=== PATIENT | female | born 2000 | race Two or more races ===

== ENCOUNTER 2024-05-17 09:38 | Inpatient (IN) | payer MEDICAID, SELFPAY ==
[2024-05-17] VITALS (88 sets, daily range): BP systolic 93–140; BP diastolic 51–103; PULSE 66–113; RESP 18; TEMP 37; O2SAT 92–100; BMI 24.5
--- NOTE | 2024-05-17 10:04 | XR_ITS ---
Examination: Complete OB ultrasound greater than 14 weeks Date and time of exam: May 17, 2024 1030 hrs. Indications: Onset pelvic contractions today Findings: Viable intrauterine single fetus with single amniotic sac presentation cephalic Cardiac motion 144 BPM Placenta anterior grade 3 Clinical cord insertion 3 vessel seen Amniotic fluid index 12.3 cm spine maternal right Ovaries obscured by bowel gas. Composite estimated gestational age based on BPD, head circumference, abdominal circumference, femur length is 37 weeks 5 days Estimated weight 3187 g. Survey of intracranial anatomy, spinal anatomy, abdominal anatomy, four-chamber heart performed with no abnormalities identified. Impression: Viable intrauterine gestation cephalic presentation Estimated gestational age 37 weeks 5 days Estimated weight 3187 g.
[2024-05-17 10:10] LABS: ROM Kit Lot # 57805053; ROM Swab Mixed By: SEGA; Rupture of Fetal Membranes Negative (Negative); Swb Mxed in Solvent 1 min? Yes
--- NOTE | 2024-05-17 13:27 | PD.LDHP ---
Documentation for date of: 05/17/24 OB Labor/Induct. HPI History of Present Illness Chief complaint: 24 y/o 36w 5d presents to L&D in early labor at 3 cm : 2 Para: 0 Term pregnancies: 0 pregnancies: 0 Living children: 0 History of Abortions: Spontaneous and Elective: 1 History of Vaginal deliveries: 0 History of sections: No History of : No WILL: 06/09/24 Gestational Age (weeks): 36 Gestational Age (days): 5 History of present illness: 24 y/o 36w 5d presents to L&D in early labor at 2 cm, pt came in complaining of pain 8/10 tasha 2-3 minutes at 2 cm and quickly changed to 3/80/-2 vertex with a bulging bag. Complete sono fetus is measuring about 37 weeks with EFW 3200g. GBS is neg. has been complicated by severe anemia, pt did have blood transfusion early in . Pt also has depression and is currently on zoloft. Pt has a hx of 1 SAB. NIPT neg Male and AFP is neg. PT received TDAP and RSV vaccine during care. History of Present Dating criteria: based on 1st trimester US only Adequate Care: Yes Ultrasounds: normal 1st trimester US and normal mid trimester US Obstetrical complications: other (Anemia and depression) Labs Maternal Blood Type: A Pos Labs: Positive: Rubella Titre, Negative: RPR, Hepatitis B, HIV, Chlamydia, Gonorrhea and Group Beta Strep and Unknown: Herpes Type 1, Herpes Type 2 and Covid-19 Review of Systems Review of Systems Systems Reviewed: All systems reviewed, normal except as documented Past Medical History Surgical History SURGICAL: Negative Section Meds Home Medications and Allergies Home Medications ?Medication ?Instructions ?Recorded ?Confirmed ?Type [id number] 1 mg 2 tab PO DAILY 05/17/24 05/17/24 History tablet Allergies Allergy/AdvReac Type Severity Reaction Status Date / Time No Known Allergies Allergy Verified 05/17/24 10:27 OB Exam Physical Exam Vital signs: Pulse BP 73 121/76 05/17/24 13:15 05/17/24 13:15 Constitutional Constitutional: moderate distress (Secondary to painful contractions) Routine HEENT Exam Head: Present normocephalic and atraumatic Eye: Present EOMI, PERRL and normal accommodation ENT: Present mucous membranes moist Routine Neck Exam Neck: Present full ROM Routine Respiratory Exam Respiratory: Absent respiratory distress Routine Cardiovascular Exam Cardiovascular: Present RRR Routine Abdominal Exam Abdominal: Present soft Comments: Gravid Uterus EFW 3200g Routine Exam External: Present normal urethra appearance; Absent lesions Detailed Labor and Delivery Exam Dilation (cm): 3 Effacement (%): 80 Cervix position: posterior station: -2 Consistency: soft Presentation: Vertex Membranes: intact Baseline heart rate: 130 monitor accelerations: 15x15 monitor decelerations: None penitentiary variability: Moderate (11-25) Contraction frequency (min): 2-3 Contraction intensity: Strong Routine Extremities Exam Extremities: Present full ROM Routine Back/Spine/Pelvis Exam Back/Spine: Present full ROM Routine Skin Exam Skin: Present intact, dry and warm Routine Neurological Exam Neurological: Present alert, oriented X3 and CN II-XII intact Routine Psychiatric Exam Psychiatric: Present normal affect and normal thought process OB Results Labs 05/17/24 13:00 OB Assessment & Plan Assessment and Plan (1) Normal labor: Status: Acute (2) with 36 to 37 weeks completed gestation: Status: Acute (3) Anemia affecting in third trimester: Status: Acute (4) Depression affecting : Status: Acute Additional Plan Induction method: none Plan: augmentation, anticipate NVD and consult prgia Additional Plan Comment: Routine admit orders Consult anesthesia for an epidural Ok to intermittent monitor early in labor
[2024-05-17 13:36] LABS: Basophils % (Auto) 0 % (0-2.5); Eosinophils % (Auto) 0 % (0-10); Immature Granulocytes % (Auto) 0 % (0-0); Immature Granulocytes Auto 0.04 Thou/mm3 (0.00-0.00); Lymphocytes % (Auto) 10 % (10-50); Mean Corpuscular HGB Conc 32.3 g/dl (31.0-37.0); Mean Corpuscular Hemoglobin 23.8 pg (25.0-35.0); Mean Corpuscular Volume 74 fL (80-100); Monocytes # (Auto) 0.6 Thou/mm3 (0.0-0.8); Monocytes % (Auto) 6 % (0-12); Neutrophils # (Auto) 8.5 Thou/mm3 (1.8-7.7); Neutrophils % (Auto) 84 % (37-80); Nucleated Red Blood Cell % 0 /100 WBC (0); Platelet Count 336 Thou/mm3 (140-440); RDW Standard Deviation 38.7 fL (36.4-46.3)
[2024-05-17 13:55] LABS: Syphilis Nonreactive (Nonreactive)
[2024-05-17 15:52] LABS: Amphetamine/Metham Scrn,Ur OB Negative (Negative); Benzoylecgonine Screen, Ur OB Negative (Negative); Opiate Screen,Urine OB Negative (Negative); THC Screen,Urine OB Negative (Negative)
[2024-05-17] MEDS: RINGERS LACTATED 1000 ML 1,000 ML 100 ML IV ×2 (18:28→21:27)
[2024-05-17] MEDS: fentaNYL CIT INJ 50 mCg/ML AMP 2ML 100 MCG IV (18:44)
[2024-05-17] MEDS: BETAMET ACET/BETAMET NA PH (Celestone) 6 MG/ML VIAL 12 MG IM (19:15)
[2024-05-17] MEDS: RINGERS LACTATED 1000 ML 1,000 ML 999 ML IV (20:27)
[2024-05-18] VITALS (72 sets, daily range): BP systolic 101–150; BP diastolic 63–96; PULSE 65–118; RESP 16–18; TEMP 36.3–36.8; O2SAT 87–100
[2024-05-18] MEDS: MINERAL OIL 30 ML UDC TOP (01:35)
[2024-05-18] MEDS: OXYTOCIN in NS 20 units 20 UNIT/1,000 ML BAG 125 UNIT IV (02:02)
[2024-05-18] MEDS: LIDOCAINE HCL 1% 20 ML VIAL INFL (02:06)
[2024-05-18] MEDS: BENZO/LANO/ALOE (Dermoplast) 60 GM CAN 1 SPRAY TOP (02:10)
--- NOTE | 2024-05-18 02:26 | OBDSUM_ITS ---
Data (Mei) Data Hx Section: No Maternal Blood Type: A Pos Rubella Titre: Positive RPR: Non-reactive Labs: Negative: RPR, Hepatitis B, HIV, Chlamydia, Gonorrhea and Group Beta Strep and Unknown: Herpes Type 1 and Herpes Type 2 : 2 Para: 0 Term: 0 : 0 Livin : 1 Delivery Data (Mei) Labor Data Stimulated/Augmented: No Induction: No ROM Date: 05/18/24 ROM Time: 01:33 Rupture Type: AROM Amniotic Fluid: Clear Delivery Data EDC: 06/09/24 EDC calculated by:: ultrasound Labor Onset Stage 1 Date: 05/17/24 Labor Onset Stage 1 Time: 02:00 Labor Onset Stage 2 Date: 05/18/24 Labor Onset Stage 2 Time: 00:00 Delivery Date: 05/18/24 Delivery Time: 02:00 Gestational age (weeks): 36 Gestational age (days): 6 Placenta Delivery Date: 05/18/24 Placenta Delivery Time: 02:02 Delivered by: Daiana Desai Delivery nurse: Niyah Cabrales Pivot End Polisher at delivery: No Support person(s) at delivery: FOB Other staff at delivery: 2nd Nurse Delivery Method Delivery: Vaginal Delivery Type: Spontaneous Presentation: Vertex Position: OA Anesthesia Type Primary Anesthesia: Epidural Secondary Anesthesia: Local Delivery Room Medications Other Intrapartum Medications: No Post Delivery Medications N/A: No Placenta Placenta Delivery: Spontaneous Placenta Cultures Obtained: No Placenta Sent for Examination: No Cord Sample: Cord Blood Obtained Episiotomy Episiotomy: None Lacerations #1: Labial: Bilateral Perineal repair Sutures used for repair: 4.0 Vicryl (SH) EBL Estimated blood loss (ml): 200 Umbilical Cord Umbilical Vessels: 3 Nuchal Cord: Not Applicable Body Cord: Not Applicable Additional Procedures Patient came in labor yesterday and progressed all on her own very well she was complete this morning. AROM performed clear fluids patient pushed for about 27 minutes and had an of a viable male infant. 's anterior shoulder delivered with gentle downward traction subsequent delivery the posterior shoulder and the body without complications. Infant placed on mother's abdomen. Vigorous cry upon delivery. Cord was clamped. Cut by FOB. Cord blood obtained. Three-vessel cord noted. Placenta expelled spontaneously and intact. Patient sustained bilateral labial laceration. Repaired using a 4-0 Vicryl on an SH. Perineum intact. Excellent hemostasis achieved after vigorous fundal massage and removal of clots from the posterior fornix. EBL is 200. Sponge and needle count correct. Mother and baby stable, skin to skin and bonding in LDR. Data (Mei) [place] Data Gender: Male Infant Weight Grams: 3330 1 Minute Total: 9 5 Minute Total: 9
[2024-05-18] MEDS: TRANEXAMIC ACID 1,000 MG IVPB 1,000 MG/100 ML BAG 200 MG IV (02:42)
[2024-05-18] MEDS: IBUPROFEN TAB 400 MG TABLET 800 MG PO (03:07)
[2024-05-18] MEDS: HYDROcodone/APAP 5/325 TABLET 1 TAB PO ×3 (07:22→23:15)
[2024-05-18] MEDS: DOCUSATE SOD 100 MG CAPSULE PO (08:25)
--- NOTE | 2024-05-18 09:44 | PC.NURSE ---
Cleared by social work faculty member
[2024-05-18 09:55] LABS: Basophils % (Auto) 0 % (0-2.5); Eosinophils % (Auto) 0 % (0-10); Hematocrit 30.1 % (36.0-46.0); Hemoglobin 9.7 g/dL (12.0-16.0); Immature Granulocytes % (Auto) 1 % (0-0); Immature Granulocytes Auto 0.09 Thou/mm3 (0.00-0.00); Lymphocytes # (Auto) 0.8 Thou/mm3 (1.0-4.8); Lymphocytes % (Auto) 4 % (10-50); Mean Corpuscular HGB Conc 32.2 g/dl (31.0-37.0); Mean Corpuscular Hemoglobin 24.3 pg (25.0-35.0); Mean Corpuscular Volume 75 fL (80-100); Monocytes # (Auto) 0.4 Thou/mm3 (0.0-0.8); Monocytes % (Auto) 2 % (0-12); Neutrophils # (Auto) 17.8 Thou/mm3 (1.8-7.7); Neutrophils % (Auto) 93 % (37-80); Nucleated Red Blood Cell % 0 /100 WBC (0); Platelet Count 348 Thou/mm3 (140-440); RDW Standard Deviation 39.6 fL (36.4-46.3); White Blood Count 19.1 Thou/mm3 (3.6-11.0)
--- NOTE | 2024-05-18 11:18 | PC.SS ---
BYPRODUCT ENGINEER, Sheyla, met with patient [id number] to do initial assessment due to suffering from depression and anxiety. BYPRODUCT ENGINEER introduced herself, role in the agency, reason for visit, and discussed limits of confidentiality. Patient appeared alert and oriented to self, time, place, and situation. Patient appears stated age. Patient made good eye contact. Patient?s attitude appeared pleasant and cooperative. Patient?s behavior appeared ordinary. Patient?s mood appears ordinary. No signs of delusions or hallucinations. This is 24-year-old, , single female who presented to the hospital to deliver her son, Pasquale. Patient was able to verify her address and phone number. Patient reported that she resides at home with her significant other, Noe. Patient is independent with all her ADLs, no DME use. Patient is employed by [employer]. Patient reported being diagnosed with anxiety and depression. Patient was prescribed zoloft during her . Patient reported that she has been off her medication for a week due to being unable to pick it up. Patient reported that she has a therapist, Марина, at [facility]. Patient denies any history of suicide attempts, 5150 holds. Patient denied any current substance use. She used to use THC. Patient declined any involvement with C[facility]. Patient declined any domestic violence at home. Patient reports feeling happy and excited to return home. Patient reports having all the equipment for the baby. Patient reported having her own vehicle for transportation. Patient reported that her sister, Ashley, and her significant other, Noe are her main support system. Patient will discharge home when medically clear. Patient declined any resources since she is already receiving therapy for past trauma. ALISSA discussed with patient Post Depression, as well as symptoms, and indicated to follow up with her OBGYN or PCP for antidepressant management.
[2024-05-18 18:23] LABS: Basophils % (Auto) 0 % (0-2.5); Eosinophils % (Auto) 0 % (0-10); Hematocrit 29.8 % (36.0-46.0); Hemoglobin 9.5 g/dL (12.0-16.0); Immature Granulocytes % (Auto) 1 % (0-0); Immature Granulocytes Auto 0.13 Thou/mm3 (0.00-0.00); Lymphocytes # (Auto) 1.2 Thou/mm3 (1.0-4.8); Lymphocytes % (Auto) 5 % (10-50); Mean Corpuscular HGB Conc 31.9 g/dl (31.0-37.0); Mean Corpuscular Hemoglobin 24.3 pg (25.0-35.0); Mean Corpuscular Volume 76 fL (80-100); Monocytes # (Auto) 0.8 Thou/mm3 (0.0-0.8); Monocytes % (Auto) 4 % (0-12); Neutrophils # (Auto) 19.4 Thou/mm3 (1.8-7.7); Neutrophils % (Auto) 90 % (37-80); Nucleated Red Blood Cell % 0 /100 WBC (0); Platelet Count 359 Thou/mm3 (140-440); RDW Standard Deviation 39.9 fL (36.4-46.3); Red Blood Count 3.91 Miln/mm3 (4.00-5.20); White Blood Count 21.5 Thou/mm3 (3.6-11.0)
[2024-05-18] MEDS: ceFAZolin/D5W 2 GM IV 2 GM/100 ML BAG IV (19:26)
[2024-05-19] MEDS: ceFAZolin/D5W 2 GM IV 2 GM/100 ML BAG IV ×2 (00:04→06:26)
[2024-05-19 04:00] VITALS: BP 104/67; PULSE 66; RESP 18; TEMP 36.5; O2SAT 95
[2024-05-19 07:41] LABS: Basophils % (Auto) 0 % (0-2.5); Eosinophils % (Auto) 0 % (0-10); Hematocrit 28.6 % (36.0-46.0); Hemoglobin 9.1 g/dL (12.0-16.0); Immature Granulocytes % (Auto) 1 % (0-0); Immature Granulocytes Auto 0.11 Thou/mm3 (0.00-0.00); Lymphocytes # (Auto) 1.8 Thou/mm3 (1.0-4.8); Lymphocytes % (Auto) 12 % (10-50); Mean Corpuscular HGB Conc 31.8 g/dl (31.0-37.0); Mean Corpuscular Hemoglobin 24.1 pg (25.0-35.0); Mean Corpuscular Volume 76 fL (80-100); Monocytes # (Auto) 0.6 Thou/mm3 (0.0-0.8); Monocytes % (Auto) 4 % (0-12); Neutrophils # (Auto) 13.3 Thou/mm3 (1.8-7.7); Neutrophils % (Auto) 84 % (37-80); Nucleated Red Blood Cell % 0 /100 WBC (0); Platelet Count 356 Thou/mm3 (140-440); RDW Standard Deviation 39.5 fL (36.4-46.3); Red Blood Count 3.78 Miln/mm3 (4.00-5.20); White Blood Count 15.9 Thou/mm3 (3.6-11.0)
[2024-05-19] MEDS: DOCUSATE SOD 100 MG CAPSULE PO (08:08)
[2024-05-19] MEDS: IBUPROFEN TAB 400 MG TABLET 800 MG PO (08:08)
[2024-05-19 09:00] VITALS: BP 113/71; PULSE 63; RESP 16; TEMP 36.8; O2SAT 99
--- NOTE | 2024-05-19 11:13 | ESDS_ITS ---
DS: Providers Provider Date of admission: 05/17/24 12:52 Primary care physician: Physician No Primary/Family Admitting Provider: Daiana Desai CNM Attending Provider on Admission: Aravind Hinojosa MD Attending Provider on DC: Daiana Desai CNM Discharging Provider: Daiana Desai CNM Anticipated date of discharge: 05/19/24 DS: Diagnosis Discharge Diagnosis (1) Normal spontaneous vaginal delivery: Status: Acute (2) Encounter for care of lactating mother: Status: Acute (3) Depression affecting : Status: Acute (4) Anemia affecting in third trimester: Status: Acute (5) with 36 to 37 weeks completed gestation: Status: Acute (6) Normal labor: Status: Acute Problem List Completed Was Problem List Reviewed/Reconciled?: Yes Summary/Hosp Course Brief History: 24 y/o 36w 5d presents to L&D in early labor at 2 cm, pt came in complaining of pain 8/10 tasha 2-3 minutes at 2 cm and quickly changed to 3/80/-2 vertex with a bulging bag. Complete sono fetus is measuring about 37 weeks with EFW 3200g. GBS is neg. has been complicated by severe anemia, pt did have blood transfusion early in . Pt also has depression and is currently on zoloft. Pt has a hx of 1 SAB. NIPT neg Male and AFP is neg. PT received TDAP and RSV vaccine during care. 05/18/24: Patient came in labor yesterday and progressed all on her own very well she was complete this morning. AROM performed clear fluids patient pushed for about 27 minutes and had an of a viable male . 's anterior shoulder delivered with gentle downward traction subsequent delivery the posterior shoulder and the body without complications. Infant placed on mother's abdomen. Vigorous cry upon delivery. Cord was clamped. Cut by FOB. Cord blood obtained. Three-vessel cord noted. Placenta expelled spontaneously and intact. Patient sustained bilateral labial laceration. Repaired using a 4- 0 Vicryl on an SH. Perineum intact. Excellent hemostasis achieved after vigorous fundal massage and removal of clots from the posterior fornix. EBL is 200. Sponge and needle count correct. Mother and baby stable, skin to skin and bonding in LDR. 05/19/24: day patient is stable and afebrile. No complaints. Denies dizziness shortness of breath. Ambulating without issues passing gas. Uterus is nontender fundus firm minimal lochia. Discharge instructions given patient to follow-up with Daiana Desai CNM in 3 weeks . Peripartum Data Delivery Method: Normal Vaginal Delivery Episiotomy Description: None Laceration Description: yes and see Delivery Summary complications: none [place] 1: Gender: Male Disposition of : home Status at Discharge Cognitive/behavioral status at discharge: Alert and oriented x 3 Functional status at discharge: independent ambulation Overall status at discharge: patient is progressing back to baseline Time Spent with Patient Time attestation: Total time spent providing and/or coordinating discharge services: Time spent: Greater than 30 minutes Exam Vital Signs Temp Pulse Resp BP Pulse Ox 98.6 F 71 18 128/69 100 05/17/24 13:20 05/18/24 02:09 05/17/24 13:20 05/18/24 02:09 05/18/24 02:17 Constitutional Constitutional: no acute distress Routine HEENT Exam Head: Present normocephalic and atraumatic Eye: Present EOMI, PERRL and normal accommodation ENT: Present mucous membranes moist Routine Neck Exam Neck: Present supple, full ROM and trachea midline Routine Respiratory Exam Respiratory: Present chest non-tender, lungs clear, normal breath sounds and no resp distress Routine Cardiovascular Exam Cardiovascular: Present RRR Routine Abdominal Exam Abdominal: Present soft and normoactive bowel sounds; Absent tenderness or distended Comments: Uterus nontender Fundus firm Routine Exam Patient deferred: external exam Routine Extremities Exam Extremities: Present full ROM, pulses intact and normal capillary refill; Absent calf tenderness or tenderness Routine Back/Spine/Pelvis Exam Back/Spine: Present full ROM Routine Skin Exam Skin: Present intact, dry and warm Routine Neurological Exam Neurological: Present alert, oriented X3 and CN II-XII intact Routine Psychiatric Exam Psychiatric: Present normal affect and normal thought process Discharge Plan Plan Patient Disposition: HOME (Self Care) Patient condition on transfer: Stable Prescriptions/Referrals Prescriptions/Med Rec: New ibuprofen 800 mg tablet 800 mg PO Q6H MDD 4 PRN (Reason: pain) Qty: 120 0RF docusate sodium [Colace] 100 mg capsule 100 mg PO BID Qty: 60 0RF lanolin 50 % ointment 1 applic topical TID PRN (Reason: skin irritation) Qty: 15 0RF Continued [id number] 1 mg Tablet 2 tab PO DAILY Referrals: No Primary/Family,Physician [Primary Care Provider] - Patient/Caregiver Discharge Instructions Meds to Beds: No Discharge Activity: activity as tolerated Other Discharge Activity Instructions:: Follow-up with Daiana Desai CNM in 3 weeks Education Materials: After a Vaginal , : Caring for Yourself Print Language: Italian Stand Alone Forms: Gladys Award Info., Patient Portal Info Letter Discharge Order Discharge Orders: Discharge (Routine); Ordered 05/19/24 Ordered By: Daiana Desai Planned Discharge Date 05/19/24
== END 2024-05-19 15:42 | disposition home or self-care (01) | DRG 560 ==
LOC: S4SX 05-18 02:25 → S4NX 05-18 04:04
PROVIDERS: Admitting Provider Nurse Practitioner Women's Health; Visit Provider Obstetrics & Gynecology
DX: O99.02 Anemia complicating childbirth (principal); F32.A Depression, unspecified; O99.344 Other mental disorders complicating childbirth; Z37.0 Single live birth; Z3A.36 36 weeks gestation of pregnancy; O70.0 First degree perineal laceration during delivery
CPT/HCPCS: 36415; 59025; 59409; 76805; 80307; 84112; 85025; 86780; 86850; 86900; 86901; 94762; J0689; J0702; J2590; J2795; J3010; J3490; J7120; A9270; J0690